=== PATIENT | female | born 1990 | race Caucasian/White ===

== ENCOUNTER 2016-12-26 07:28 | Emergency (ER) | payer SELFPAY ==
[2016-12-26 07:41] VITALS: BP 122/72
--- NOTE | 2016-12-26 08:00 | UC ---
Respiratory Complaint HPI - HPI Summary HPI Summary: COUGH / CHEST CONGESTION X 6 DAYS NASAL CONGESTION , PND NO FEVER, + CHILLS - History of Current Complaint Chief Complaint: UCRespiratory Stated Complaint: COUGH Time Seen by Provider: 12/26/16 07:51 Hx Obtained From: Patient Hx Last Menstrual Period: 11/20/16, PERIODS ARE IRREGULAR PT STATES Onset/Duration: Gradual Onset, Lasting Days - 6, Still Present Timing: Constant Severity Initially: Moderate Severity Currently: Moderate Character: Cough: Nonproductive Aggravating Factors: Exertion, Deep Breaths Alleviating Factors: Nothing Associated Signs And Symptoms: Positive: Chills, URI. Negative: Dyspnea, Fever , Wheezing, Hemoptysis, Dizziness, Calf Pain - Allergies/Home Medications Allergies/Adverse Reactions: Allergies Allergy/AdvReac Type Severity Reaction Status Date / Time No Known Allergies Allergy Verified 12/26/16 07:32 Home Medications: Home Medications Fyozrswafigta-Fyoagphprrb-Ij [Theraflu Cold & Cough] 1 sheridan PO 12/26/16 [History] PMH/Surg Hx/FS Hx/Imm Hx Endocrine History Of: Denies: Diabetes, Thyroid Disease Cardiovascular History Of: Denies: Cardiac Disorders Respiratory History Of: Denies: Asthma - Surgical History Surgical History: Yes Surgery Procedure, Year, and Place: ovarian cyst - Family History Known Family History: Negative: Diabetes - Social History Alcohol Use: None Substance Use Type: None Smoking Status (MU): Never Smoked Tobacco - Immunization History Most Recent Influenza Vaccination: FALL 2015 Review of Systems Constitutional: Chills Skin: Negative Eyes: Negative ENT: Sore Throat, Nasal Discharge Respiratory: Cough Cardiovascular: Negative Gastrointestinal: Negative Genitourinary: Negative Motor: Negative All Other Systems Reviewed And Are Negative: Yes Physical Exam Triage Information Reviewed: Yes Appearance: Well-Appearing, No Pain Distress, Well-Nourished Vital Signs: Initial Vital Signs Temp 98.9 F 12/26/16 07:34 Pulse 95 12/26/16 07:34 Resp 18 12/26/16 07:34 BP 122/72 12/26/16 07:34 Pulse Ox 98 12/26/16 07:34 Vital Signs Reviewed: Yes Eyes: Positive: Conjunctiva Clear ENT: Positive: Normal ENT inspection, Pharyngeal erythema, Nasal congestion, Nasal drainage, TMs normal Neck exam: Normal Neck: Positive: Supple, Nontender, No Lymphadenopathy Respiratory: Positive: Chest non-tender, Lungs clear, Normal breath sounds Cardiovascular: Positive: RRR, No Murmur, Pulses Normal Skin Exam: Normal UC Diagnostic Evaluation - Laboratory O2 Sat by Pulse Oximetry: 98 Respiratory Course/Dx - Differential Dx/Diagnosis Provider Diagnoses: ACUTUE BRONCHTIS Discharge - Discharge Plan Condition: Stable Disposition: HOME Prescriptions: Azithromycin TAB* [Zithromax TAB (Z-SHERIDAN) 250 mg #6 tabs] 2 tab PO .TODAY, THEN 1 DAILY #1 sheridan Benzonatate CAP* [Tessalon CAP*] 100 mg PO TID #21 cap Patient Education Materials: Acute Bronchitis (ED) Referrals: Ravi Olivares MD [Primary Care Provider] - 7 Days
== END 2016-12-26 08:03 | disposition home or self-care (01) ==
LOC: UCCORT 07:28
DX: J20.9 Acute bronchitis, unspecified (principal); R09.81 Nasal congestion
CPT/HCPCS: 99211; G0463